=== PATIENT | male | born 1980 | race Caucasian/White ===

== ENCOUNTER 2021-06-11 11:08 | Emergency (ER) | payer OTHER ==
[~2021-06-11] VITALS: Ht 180.3 cm; Wt 99.8 kg
[2021-06-11 11:24] VITALS: BP 142/97
--- NOTE | 2021-06-11 11:31 | NUR ---
ARRIVAL PT AMBULATES TO ED7 WITH C/O RIGHT SIDED HEAD AND EAR PRESSURE SINCE WEDNESDAY. THE PT STATES THAT HE HAS A SORE THROAT ON THE RIGHT SIDE AND HAS HAD CHILLS WITH NO FEVER. THE PT HAS TAKEN IBUPROFEN AND TYLENOL WITH MILD RELIEF BUT SYMPTOMS COME BACK. THE PT STATES THAT THE SYMPTOMS HAVE CONTINUED TO WORSEN SINCE WEDNESDAY. THE PTS VITALS OBTAINED AND DR. LIANG NOTIFED OF PTS ARRIVAL.
--- NOTE | 2021-06-11 11:35 | ER.PDOC ---
General Chief Complaint: General Complaint Stated Complaint: ST,HEAD PRESSURE TRAVEL OUT OF US: No Time seen by MD: 11:33 History of Present Illness Timing/Duration: 1 week Severity: mild Modifying Factors: improves with immobilization, improves with medication Allergies: Coded Allergies: No Known Allergies (Unverified , 06/11/21) Past Medical History Medical History: hypertension Surgical History: other Social History Alcohol Use: occassionally Drug Use: none Reviewed Nursing Reviewed: Vital Signs, Abn. Noted Review of Systems All Other Systems: Reviewed and Negative Physical Exam General Appearance: No Apparent Distress EENT: eyes nml inspection, pharyngeal erythema Neck: Tender Lateral Respiratory: chest non-tender CVS: reg rate & rhythm Gastrointestinal: Normal Bowel Sounds Back: Normal Inspection Extremities: Normal Range of Motion Neurologic/Psychiatric: Motor Weakness Skin: Normal Color Lymphatic: No Adenopathy Results/Orders Results/Orders Vital Signs Date Time Temp Pulse Resp B/P (MAP) Pulse Ox O2 Delivery O2 Flow Rate FiO2 06/11/21 11:24 98.2 95 16 97 06/11/21 11:24 98.2 95 16 06/11/21 11:24 98.2 95 16 142/97 (112) 97 Room Air ER DEPART Departure Time of Disposition: 12:00 Disposition: 01 HOME / SELF CARE / HOMELESS Impression: Primary Impression: Pharyngitis Condition: Stable Referrals: PCP,UNKNOWN (PCP) PRIMARY CARE PROVIDER Duration or Time Spent with Pa: 11 m Return to Work/School Can a patient return to work?: No Can a patient return to school: No DEISI LIANG MD Jun 11, 2021 11:35
== END 2021-06-11 11:38 | disposition home or self-care (01) ==
LOC: ER 11:08
DX: J02.9 Acute pharyngitis, unspecified (principal); I10 Essential (primary) hypertension
CPT/HCPCS: 99282